=== PATIENT | female | born 1990 | race Two or more races ===

== ENCOUNTER 2019-07-25 16:46 | Emergency (ER) | payer SELFPAY ==
[~2019-07-25] VITALS: Ht 167.6 cm; Wt 131.5 kg
[~2019-07-25 16:46] MED LIST: CLIN150C14 PO; METR500T PO; PHEN37.5 PO
[2019-07-25] MEDS ORDERED: ONDANSETRON PF 4 MG/2 ML VIAL. ONE (17:21)
[2019-07-25] MEDS ORDERED: LIDO:MAALOX 1:1 20 ML SINGLE DOSE. ONE (17:21)
[2019-07-25 17:25] LABS: BASO # 0.1 x10^3/uL (0.0-0.2); BASO % 1 % (0-3); EOS # 0.1 x10^3/uL (0.0-0.7); EOS % 1 % (0-3); HEMATOCRIT 43.8 % (36.0-47.0); LYMPH # 1.3 x10^3/uL (1.0-4.8); LYMPH % 10 % (24-48); MEAN CORPUSCULAR HEMOGLOBIN 30 pg (25-35); MEAN CORPUSCULAR HGB CONC 34 g/dL (31-37); MEAN CORPUSCULAR VOLUME 86 fL (79-100); MONO # 0.5 x10^3/uL (0.0-1.1); MONO % 4 % (0-9); NEUT # 10.6 x10^3/uL (1.8-7.7); NEUT % 85 % (31-73); PLATELET COUNT 317 x10^3/uL (140-400); RED BLOOD COUNT 5.08 x10^6/uL (3.50-5.40); RED CELL DISTRIBUTION WIDTH 12.9 % (11.5-14.5); WHITE BLOOD COUNT 12.5 x10^3/uL (4.0-11.0)
[2019-07-25] MEDS ORDERED: IV NORMAL SALINE 1000ML BAG 1,000 ML IV ONE (17:30)
[2019-07-25] MEDS ORDERED: LIDO:MAALOX 1:1 20 ML SINGLE DOSE. SWSW ONE (17:30)
[2019-07-25] MEDS ORDERED: ONDANSETRON PF 4 MG/2 ML VIAL. IV ONE (17:30)
[2019-07-25 17:33] LABS: CALCIUM 8.8 mg/dL (8.5-10.1); CREATININE 0.7 mg/dL (0.6-1.0); GFR 98.9; POTASSIUM 3.9 mmol/L (3.5-5.1)
[2019-07-25 17:38] LABS: ALBUMIN 3.8 g/dL (3.4-5.0); ALBUMIN/GLOBULIN RATIO 0.9 (1.0-1.7); MAGNESIUM 1.8 mg/dL (1.8-2.4); TOTAL BILIRUBIN 0.5 mg/dL (0.2-1.0)
[2019-07-25] MEDS ORDERED: FAMOTIDINE 20 MG/2 ML VIAL IVP ONE (17:45)
[2019-07-25 17:49] LABS: PREG TEST PT QUAL NEGATIVE (NEG)
--- NOTE | 2019-07-25 17:49 | PHYS DOC ---
Past Medical History Past Medical History: Asthma, GERD, Other Additional Past Medical Histor: BACK PAIN Past Surgical History: Appendectomy, Cholecystectomy, Additional Past Surgical Histo: PARTIAL REMOVAL OF RIGHT TUBE Alcohol Use: Occasionally Drug Use: None Adult General Chief Complaint Chief Complaint: ABDOMINAL PAIN [facility] HPI Patient is a 29 year old female, accompanied by her , who presents to the emergency department with complaints of nausea, vomiting, diarrhea, body aches, and epigastric pain that began today. Patient states she has had at least 10 episodes of nausea and vomiting at least 10 episodes of watery diarrhea today. She denies any blood in her emesis or stools. Patient denies any fever, chills, cough, shortness of breath, wheezing, ear pain, or headache. She states that her throat hurts after vomiting so many times. She denies any dysuria, hematuria, increased urinary frequency, or low back pain. The patient currently rates her pain at 10/10 on the pain scale, she denies any alleviating factors. All other ROS is neg unless otherwise noted in HPI. Review of Systems Review of Systems See Above Current Medications Current Medications Current Medications Medications (Trade) Dose Ordered Sig/Karely Start Time Stop Time Status Last Admin Dose Admin Famotidine (Pepcid Vial) 20 mg 1X ONCE 07/25/19 17:45 07/25/19 17:46 DC 07/25/19 18:16 20 MG Multi-Ingredient Mouthwash/Gargle (Gi Cocktail) 20 ml 1X ONCE 07/25/19 17:30 07/25/19 17:31 DC 07/25/19 17:28 20 ML Ondansetron HCl (Zofran) 4 mg 1X ONCE 07/25/19 17:30 07/25/19 17:31 DC 07/25/19 17:27 4 MG Sodium Chloride 1,000 ml @ 1,000 mls/hr 1X ONCE 07/25/19 17:30 07/25/19 18:29 DC 07/25/19 17:26 1,000 MLS/HR Allergies Allergies Allergies Coded Allergies Type Severity Reaction Last Updated Verified Penicillins Allergy Intermediate hives 07/25/19 Yes Physical Exam Physical Exam See Above Constitutional: Well developed, well nourished, moderate distress, non-toxic appearance, obese. [] HENT: Normocephalic, atraumatic, bilateral external ears normal, oropharynx moist, no oral exudates, nose normal. [] Eyes: PERRLA, EOMI, conjunctiva normal, no discharge. [] Neck: Normal range of motion, no stridor. [] Cardiovascular:Heart rate regular rhythm, no murmur [] Lungs & Thorax: Bilateral breath sounds clear to auscultation [] Abdomen: Bowel sounds normal, soft, epigastric TTP, no guarding, no rebound tenderness, no masses, no pulsatile masses. [] Skin: Warm, dry, no erythema, no rash. [] Back: No tenderness, no CVA tenderness. [] Extremities: No cyanosis, ROM intact Neurologic: Alert and oriented X 3, no focal deficits noted. [] Psychologic: Affect anxious, judgement normal, mood normal. [] Current Patient Data Vital Signs Vital Signs Date Time Temp Pulse Resp B/P (MAP) Pulse Ox O2 Delivery O2 Flow Rate FiO2 07/25/19 17:00 99.6 100 16 139/73 (95) 95 Room Air 99.6 Lab Values Laboratory Tests Test 07/25/19 17:19 07/25/19 17:47 07/25/19 17:53 White Blood Count 12.5 x10^3/uL (4.0-11.0) H Red Blood Count 5.08 x10^6/uL (3.50-5.40) Hemoglobin 15.0 g/dL (12.0-15.5) Hematocrit 43.8 % (36.0-47.0) Mean Corpuscular Volume 86 fL (79-100) Mean Corpuscular Hemoglobin 30 pg (25-35) Mean Corpuscular Hemoglobin Concent 34 g/dL (31-37) Red Cell Distribution Width 12.9 % (11.5-14.5) Platelet Count 317 x10^3/uL (140-400) Neutrophils (%) (Auto) 85 % (31-73) H Lymphocytes (%) (Auto) 10 % (24-48) L Monocytes (%) (Auto) 4 % (0-9) Eosinophils (%) (Auto) 1 % (0-3) Basophils (%) (Auto) 1 % (0-3) Neutrophils # (Auto) 10.6 x10^3/uL (1.8-7.7) H Lymphocytes # (Auto) 1.3 x10^3/uL (1.0-4.8) Monocytes # (Auto) 0.5 x10^3/uL (0.0-1.1) Eosinophils # (Auto) 0.1 x10^3/uL (0.0-0.7) Basophils # (Auto) 0.1 x10^3/uL (0.0-0.2) Sodium Level 139 mmol/L (136-145) Potassium Level 3.9 mmol/L (3.5-5.1) Chloride Level 102 mmol/L (98-107) Carbon Dioxide Level 27 mmol/L (21-32) Anion Gap 10 (6-14) Blood Urea Nitrogen 14 mg/dL (7-20) Creatinine 0.7 mg/dL (0.6-1.0) Estimated GFR (Cockcroft-Gault) 98.9 BUN/Creatinine Ratio 20 (6-20) Glucose Level 101 mg/dL (70-99) H Calcium Level 8.8 mg/dL (8.5-10.1) Magnesium Level 1.8 mg/dL (1.8-2.4) Total Bilirubin 0.5 mg/dL (0.2-1.0) Aspartate Amino Transferase (AST) 53 U/L (15-37) H Alanine Aminotransferase (ALT) 117 U/L (14-59) H Alkaline Phosphatase 117 U/L (46-116) H Total Protein 8.0 g/dL (6.4-8.2) Albumin 3.8 g/dL (3.4-5.0) Albumin/Globulin Ratio 0.9 (1.0-1.7) L Lipase 78 U/L (73-393) Serum Test, Qualitative Negative (NEG) Influenza Type A Antigen Negative (NEGATIVE) Influenza Type B Antigen Negative (NEGATIVE) Urine Collection Type Unknown Urine Color Yellow Urine Clarity Clear Urine pH 6.0 Urine Specific [place] 1.025 Urine Protein Negative mg/dL (NEG-TRACE) Urine Glucose (UA) Negative mg/dL (NEG) Urine Ketones (Stick) Negative mg/dL (NEG) Urine Blood Negative (NEG) Urine Nitrite Negative (NEG) Urine Bilirubin Negative (NEG) Urine Urobilinogen Dipstick 0.2 mg/dL (0.2 mg/dL) Urine Leukocyte Esterase Negative (NEG) Urine RBC 1-2 /HPF (0-2) Urine WBC 5-10 /HPF (0-4) Urine Squamous Epithelial Cells Mod /LPF Urine Bacteria Moderate /HPF (0-FEW) Urine Mucus Marked /LPF Laboratory Tests 07/25/19 17:19 Laboratory Tests 07/25/19 17:19 EKG EKG [] Radiology/Procedures Radiology/Procedures [] Course & Med Decision Making Course & Med Decision Making Pertinent Labs and Imaging studies reviewed. (See chart for details) She is a 29-year-old female who presented to the emergency department with complaints of nausea, vomiting and diarrhea that started today. Her CBC revealed white blood cell count of 12.5, was otherwise unremarkable; her CMP revealed a glucose of 101, AST of 53, ALT 117, and alkaline phosphatase of 117 was otherwise unremarkable serum test was negative; UA is likely contaminated with 5-10 white blood cells but moderate squamous cells. Patient denied any dysuria, hematuria or increased urinary frequency Patient's vital signs are stable, she was given a liter of normal saline, 4 mg of Zofran 20 mg of Pepcid and a GI cocktail in the emergency department she reported feeling better after these medications. A prescription was written for Zofran, a clear liquid diet for 24 hours was recommended followed by a bland diet and then advance as tolerated. Patient was instructed to follow-up with her primary care doctor if symptoms persist, return to the ER symptoms worsen. Patient verbalized an understanding of home care, medications, follow-up, and return to ED instructions and was in agreement with the plan of care. [] Dragon Disclaimer Dragon Disclaimer This electronic medical record was generated, in whole or in part, using a voice recognition dictation system. Departure Departure Impression: Primary Impression: Nausea, vomiting, and diarrhea Additional Impression: Epigastric abdominal pain Disposition: 01 HOME, SELF-CARE Condition: STABLE Referrals: NO PCP (PCP) Patient Instructions: Diarrhea, [id number], Diet for Diarrhea, Adult, Nausea and Vomiting, [id number] Additional Instructions: Fill prescriptions and use them as directed. Recommend clear fluids for the next 24 hours. Then you may advance to bland foods such as bananas, rice, applesauce, and dry toast. Follow-up with your primary care doctor in the next 1-2 days. Return to the emergency room if your symptoms worsen. Scripts Ondansetron Hcl (ZOFRAN) 4 Mg Tablet 1 TAB PO Q6HRS PRN for NAUSEA/VOMITING for 4 Days, #10 TAB 0 Refills Prov: GLENYS ROMAN APRN 07/25/19 Problem Qualifiers GLENYS ROMAN APRN Jul 25, 2019 17:49
[2019-07-25 18:08] LABS: BILIRUBIN,URINE NEGATIVE (NEG); CLARITY,URINE CLEAR; COLOR,URINE YELLOW; NITRITE,URINE NEGATIVE (NEG); PROTEIN,URINE NEGATIVE (NEG-TRACE); UROBILINOGEN,URINE 0.2 mg/dL (0.2 mg/dL)
[2019-07-25 18:11] LABS: INFLUENZA A PATIENT NEGATIVE (NEGATIVE); INFLUENZA B PATIENT NEGATIVE (NEGATIVE)
[2019-07-25 18:20] LABS: BACTERIA,URINE MODERATE /HPF (0-FEW)
[2019-07-25 18:21] LABS: SQUAMOUS EPITHELIAL CELL,UR MOD /LPF
[2019-07-25 18:32] VITALS: BP 115/64
[2019-07-25] MEDS ORDERED: ONDA4TAB7 PO (18:38)
== END 2019-07-25 18:52 | disposition home or self-care (01) ==
LOC: ER 16:46
DX: R11.2 Nausea with vomiting, unspecified (principal); R19.7 Diarrhea, unspecified; R10.13 Epigastric pain; J45.909 Unspecified asthma, uncomplicated; K21.9 Gastro-esophageal reflux disease without esophagitis; Z90.49 Acquired absence of other specified parts of digestive tract; Z98.890 Other specified postprocedural states; Z90.89 Acquired absence of other organs; Z88.0 Allergy status to penicillin
CPT/HCPCS: 36415; 80053; 81001; 83690; 83735; 84703; 85025; 87086; 87804; 96361; 96374; 96375; 99284; J2405; J3490; J7030

== ENCOUNTER → 2021-03-03 | Outpatient (CLI) | payer OTHER ==
[~2021-03-03] MED LIST changes: -CLIN150C14 PO; +CLIN150C15 PO; +LIDOCAINE 1% Multi-Dose 20 ML VIAL. INJ ONE; +ONDA4TAB7 PO
--- NOTE | 2021-03-03 13:57 | RAD ---
EXAM: Sonographic guided left breast biopsy; left breast biopsy clip placement; left breast postbiops y mammogram. HISTORY: 30-year-old female presents for sonographic guided biopsy of a nodule within the left breast demonstrated on a mammogram and sonogram performed at an outside facility. TECHNIQUE: The risks of the procedure were discussed with the patient and written and verbal consent was obtained. A timeout was performed. Sonographic imaging of the left breast was performed and the n odule concern at the 3:00 position was identified. The skin in this location was sterilely prepped, d raped and infiltrated with 1 percent lidocaine. Multiple core samples were obtained through the lesio n of concern with sonographic guidance. A biopsy clip was advanced to the biopsy bed and deployed. Ma nual compression was maintained until hemostasis was achieved. A sterile measures placed. A post biop sy mammogram demonstrates the biopsy clip immediately adjacent to the nodule of concern. The patient tolerated the procedure without complication and was discharged in stable condition. IMPRESSION: Sonographic and biopsy of a 1.6 cm nodule within the 3:00 position of the left breast and biopsy clip placement. An addendum to this report will be submitted when pathology results are avail able. Electronically signed by: Ankita García MD (03/03/2021 1:55 PM) [id number]
--- NOTE | 2021-03-04 18:23 | PATHOLOGY ---
[facility] Accession Number: [id number] . 01 Material submitted: . breast - LEFT BREAST TISSUE 3:00 5CM FN. Modifiers: left, 3:00, 5CM FN . 01 Clinical history: . LEFT BREAST MASS 5CM FN LEFT BREAST BIOPSY ABNORMAL HERRERA . 02 Diagnosis: Breast tissue, left breast mass 3:00 5 cm from nipple needle biopsies: - Fibroadenoma, showing focal sclerosis, mild ductal epithelial hyperplasia, and apocrine metaplasia. (JPM:clifford; 03/04/2021) MBR 03/04/2021 1327 Local . 02 Comment: There is no atypia or evidence of malignancy. (JPM:clifford; 03/04/2021) . 02 Electronically signed: . Olman Bernard MD, Pathologist NPI- [id number] . 01 Gross description: . The specimen is received in formalin, labeled "Paul, Anuradha L and left breast" and is additionally labeled per the requisition "left breast tissue 300 5 cm FN". It consists of multiple vasquez-yellow fibrofatty core tissue fragments ranging from 0.4-1.5 cm in length and averaging 0.2 cm in diameter. The specimen is entirely submitted between sponges in A1. Per the requisition; ischemic time: 1320; time in formalin: 1320. Total time in formalin: 9 hours 20 minutes. (MRF; 03/03/2021) MFE/MFE 03/04/2021 1326 Local . 02 Pathologist provided ICD-10: D24.2, N62, N60.82 . 02 CPT . 500212 Specimen Comment: A courtesy copy of this report has been sent to [phone], [phone] Specimen Comment: [id number] Specimen Comment: Report sent to / DR CAIN Performed at: [address] [facility], [place] [id number] MD Reg Domínguez MD Phone: [phone] [facility]formed at: [facility] [address], [place] [id number] MD Olman Bernard MD Phone: [phone]
== END | disposition home or self-care (01) ==
LOC: US 12:36
PROVIDERS: ATTEND Surgery
DX: N63.21 Unspecified lump in the left breast, upper outer quadrant (principal); R92.8 Other abnormal and inconclusive findings on diagnostic imaging of breast; D24.2 Benign neoplasm of left breast; N60.82 Other benign mammary dysplasias of left breast; Z87.891 Personal history of nicotine dependence; Z88.0 Allergy status to penicillin; Z72.89 Other problems related to lifestyle
CPT/HCPCS: 19083; 77065; A4648

== ENCOUNTER 2021-10-20 16:09 | Emergency (ER) | payer MEDICAID, OTHER ==
[~2021-10-20] VITALS: Ht 167.6 cm; Wt 118.2 kg
[~2021-10-20 16:09] MED LIST changes: -CLIN150C15 PO; +CLIN150C16 PO; -LIDOCAINE 1% Multi-Dose 20 ML VIAL. INJ ONE; -PHEN37.5 PO; +PHEN37.59 PO
[2021-10-20 17:02] LABS: BILIRUBIN,URINE NEGATIVE (NEG); CLARITY,URINE CLEAR; COLOR,URINE YELLOW; NITRITE,URINE NEGATIVE (NEG); PROTEIN,URINE NEGATIVE (NEG-TRACE); UROBILINOGEN,URINE 0.2 mg/dL (0.2 mg/dL)
[2021-10-20 17:03] LABS: BACTERIA,URINE FEW /HPF (0-FEW); RBC,URINE 0 /HPF (0-2); WBC,URINE OCC /HPF (0-4)
[2021-10-20 17:12] LABS: BASO # 0.1 x10^3/uL (0.0-0.2); BASO % 1 % (0-3); EOS # 0.1 x10^3/uL (0.0-0.7); EOS % 2 % (0-3); HEMATOCRIT 36.6 % (36.0-47.0); HEMOGLOBIN 12.1 g/dL (12.0-15.5); LYMPH # 3.7 x10^3/uL (1.0-4.8); LYMPH % 38 % (24-48); MEAN CORPUSCULAR HEMOGLOBIN 28 pg (25-35); MEAN CORPUSCULAR HGB CONC 33 g/dL (31-37); MEAN CORPUSCULAR VOLUME 85 fL (79-100); MONO # 0.5 x10^3/uL (0.0-1.1); MONO % 5 % (0-9); NEUT # 5.2 x10^3/uL (1.8-7.7); NEUT % 55 % (31-73); PLATELET COUNT 304 x10^3/uL (140-400); RED BLOOD COUNT 4.29 x10^6/uL (3.50-5.40); RED CELL DISTRIBUTION WIDTH 13.3 % (11.5-14.5); WHITE BLOOD COUNT 9.6 x10^3/uL (4.0-11.0)
[2021-10-20 17:19] LABS: CALCIUM 8.2 mg/dL (8.5-10.1); CREATININE 0.7 mg/dL (0.6-1.0); GFR 97.6; POTASSIUM 3.6 mmol/L (3.5-5.1)
[2021-10-20 17:26] LABS: ALBUMIN 3.3 g/dL (3.4-5.0); TOTAL BILIRUBIN 0.2 mg/dL (0.2-1.0); TOTAL PROTEIN 6.7 g/dL (6.4-8.2)
--- NOTE | 2021-10-20 17:47 | RAD ---
US OB <14 WKS +TV Clinical Indication: Left lower pelvic pain, . Patient reports positive test a wee k ago. Comparison: None. TECHNIQUE: Real-time ultrasound imaging of the pelvis using transabdominal and transvaginal window is performed. Findings: Uterus measures 11 x 8 x 7 cm. The uterus is anteverted. The endometrial stripe is thickened measurin g 2.3 cm. An intrauterine gestational sac is not identified. There are tiny nabothian cysts, largest measures 5 mm. Normal blood flow is seen in the right ovary. There is a right ovary functional cyst measuring up to 2.4 cm. Right ovary measures 3.2 x 2.8 x 2.9 cm. The left ovary is obscured due to overlying bowel ga s. No pelvic free fluid is identified. No obvious adnexal mass is seen. IMPRESSION: 1. Intrauterine gestational sac is not seen. No secondary signs of an ectopic are identifi ed. Suggest correlation with quantitative beta hCG. 2. The left ovary is not visualized. Electronically signed by: Elías Hernandez MD (10/20/2021 5:45 PM) [facility]
[2021-10-20 17:52] VITALS: BP 107/53
--- NOTE | 2021-10-20 18:28 | PHYS DOC ---
Past Medical History Past Medical History: Asthma, GERD, Other Additional Past Medical Histor: BACK PAIN Past Surgical History: Appendectomy, Cholecystectomy, Additional Past Surgical Histo: SKULL FRACTURE Smoking Status: Never Smoker Alcohol Use: None Drug Use: None General Adult EDM: Chief Complaint: ABDOMINAL PAIN HPI: HPI: Patient is a 31-year-old female G5, P4 presents to the emergency department complaining of left lower pelvic pain, patient reports she had her right uterine tube removed related to a cyst during her last . Patient is worried she may have an ectopic as she had a positive test on 10/15 o f this year. Patient reports her last menstrual cycle was July 30 however has a history of PCOS and has consistent irregular menstrual cycles. Patient reports slow onset of pain starting this past Tuesday rating a 3 or 4 out of 10 and currently increasing to a 6 out of 10 today. Patient does report being very gassy with bowel gas, reports having problems with constipation over the past week, denies seeing blood in her stool, has not had a bowel movement in 2 days, patient states she has gone longer without bowel movements, patient uses MiraLAX at home for constipation. Patient denies nausea, vomiting, abdominal discomfort, chest pain or chest congestion, denies shortness of breath. Patient denies increased urinary pressure, urinary frequency, urinary burning, hematuria or other dysuria. Patient denies vaginal discharge, denies STI concerns. Patient denies vaginal bleeding. Patient reports she has had PID in the past and this does not feel the same. Patient reports allergy to penicillin, Augmentin, and gabapentin, patient reports she takes a vitamin and Tylenol for pain at home. Patient reports her last Tylenol dose was 2 tablets at 1 PM with minimal relief of her left lower pelvic pain. Patient denies history of blood clots, DVTs, or pulmonary emboli. Patient denies other physical complaints or physical concerns. Review of Systems: Review of Systems: 14 body systems of review of systems have been reviewed. See HPI for pertinent positives and negative responses, otherwise all other systems are negative, nonpertinent or noncontributory. Constitutional: Negative except as outlined in HPI above. Skin: Negative except as outlined in HPI above. Eyes: Negative except as outlined in HPI above. HENT: Negative except as outlined in HPI above. Respiratory: Negative except as outlined in HPI above. Cardiovascular: Negative except as outlined in HPI above. GI: Negative except as outlined in HPI above. : Negative except as outlined in HPI above. Musculoskeletal: Negative except as outlined in HPI above. Integument: Negative except as outlined in HPI above. Neurologic: Negative except as outlined in HPI above. Endocrine: Negative except as outlined in HPI above. Lymphatic: Negative except as outlined in HPI above. Psychiatric: Negative except as outlined in HPI above. Heart Score: C/O Chest Pain: No Risk Factors: Risk Factors: DM, Current or recent (<one month) smoker, HTN, HLP, family history of CAD, obesity. Risk Scores: Score 0 - 3: 2.5% MACE over next 6 weeks - Discharge Home Score 4 - 6: 20.3% MACE over next 6 weeks - Admit for Clinical Observation Score 7 - 10: 72.7% MACE over next 6 weeks - Early Invasive Strategies Allergies: Allergies: Allergies Coded Allergies Type Severity Reaction Last Updated Verified Penicillins Allergy Intermediate hives 07/25/19 Yes amoxicillin Allergy Unknown 10/20/21 Yes clavulanic acid Allergy Unknown 10/20/21 Yes gabapentin Allergy Unknown 10/20/21 Yes Physical Exam: PE: Constitutional: Well developed, well nourished, no acute distress, non-toxic appearance. 31-year-old female in no apparent distress. HENT: Normocephalic, atraumatic. Eyes: Conjunctiva normal, no discharge. Neck: Normal range of motion. Cardiovascular: Distal cap refill less than 2 seconds, no cyanosis appreciated. Lungs & Thorax: Patient is in no respiratory distress, no adventitious lung sounds appreciated. Abdomen: Bowel sounds normal, soft, no tenderness, no masses, no pulsatile masses. No bruising or skin discoloration of the abdomen. There is pain to palpation left lower pelvic area. There is no rebound tenderness, no McBurney's point tenderness, no upper abdominal pain, no flank pain appreciated. Skin: Warm, dry, no erythema, no rash. Back: No tenderness, no CVA tenderness. Extremities: No tenderness, no cyanosis, no clubbing, ROM intact, no edema. Neurologic: Alert and oriented X 3, normal motor function, normal sensory function, no focal deficits noted. Psychologic: Affect normal, judgement normal, mood normal. : Patient deferred pelvic examination. Current Patient Data: Labs: Laboratory Tests Test 10/20/21 16:20 10/20/21 16:24 10/20/21 17:00 Urine Collection Type Unknown Urine Color Yellow Urine Clarity Clear Urine pH 6.0 (<5.0-8.0) Urine Specific [place] 1.025 (1.000-1.030) Urine Protein Negative mg/dL (NEG-TRACE) Urine Glucose (UA) Negative mg/dL (NEG) Urine Ketones (Stick) Negative mg/dL (NEG) Urine Blood Negative (NEG) Urine Nitrite Negative (NEG) Urine Bilirubin Negative (NEG) Urine Urobilinogen Dipstick 0.2 mg/dL (0.2 mg/dL) Urine Leukocyte Esterase Negative (NEG) Urine RBC 0 /HPF (0-2) Urine WBC Occ /HPF (0-4) Urine Squamous Epithelial Cells Mod /LPF Urine Bacteria Few /HPF (0-FEW) Urine Mucus Mod /LPF POC Urine HCG, Qualitative Hcg positive (Negative) White Blood Count 9.6 x10^3/uL (4.0-11.0) Red Blood Count 4.29 x10^6/uL (3.50-5.40) Hemoglobin 12.1 g/dL (12.0-15.5) Hematocrit 36.6 % (36.0-47.0) Mean Corpuscular Volume 85 fL (79-100) Mean Corpuscular Hemoglobin 28 pg (25-35) Mean Corpuscular Hemoglobin Concent 33 g/dL (31-37) Red Cell Distribution Width 13.3 % (11.5-14.5) Platelet Count 304 x10^3/uL (140-400) Neutrophils (%) (Auto) 55 % (31-73) Lymphocytes (%) (Auto) 38 % (24-48) Monocytes (%) (Auto) 5 % (0-9) Eosinophils (%) (Auto) 2 % (0-3) Basophils (%) (Auto) 1 % (0-3) Neutrophils # (Auto) 5.2 x10^3/uL (1.8-7.7) Lymphocytes # (Auto) 3.7 x10^3/uL (1.0-4.8) Monocytes # (Auto) 0.5 x10^3/uL (0.0-1.1) Eosinophils # (Auto) 0.1 x10^3/uL (0.0-0.7) Basophils # (Auto) 0.1 x10^3/uL (0.0-0.2) Maternal Serum HCG Beta Subunit 352 mIU/mL (0-5) H Sodium Level 141 mmol/L (136-145) Potassium Level 3.6 mmol/L (3.5-5.1) Chloride Level 106 mmol/L (98-107) Carbon Dioxide Level 26 mmol/L (21-32) Anion Gap 9 (6-14) Blood Urea Nitrogen 7 mg/dL (7-20) Creatinine 0.7 mg/dL (0.6-1.0) Estimated GFR (Cockcroft-Gault) 97.6 BUN/Creatinine Ratio 10 (6-20) Glucose Level 103 mg/dL (70-99) H Calcium Level 8.2 mg/dL (8.5-10.1) L Total Bilirubin 0.2 mg/dL (0.2-1.0) Aspartate Amino Transferase (AST) 15 U/L (15-37) Alanine Aminotransferase (ALT) 23 U/L (14-59) Alkaline Phosphatase 55 U/L (46-116) Total Protein 6.7 g/dL (6.4-8.2) Albumin 3.3 g/dL (3.4-5.0) L Albumin/Globulin Ratio 1.0 (1.0-1.7) Laboratory Tests 10/20/21 17:00 Laboratory Tests 10/20/21 17:00 Vital Signs: Vital Signs Date Time Temp Pulse Resp B/P (MAP) Pulse Ox O2 Delivery O2 Flow Rate FiO2 10/20/21 16:21 98.7 89 18 140/65 (90) 100 Room Air 98.7 EKG: EKG: [] Radiology/Procedures: Radiology/Procedures: REASON: Left lower pelvic pain, PROCEDURE: OB <14 WKS W/TV US OB <14 WKS +TV Clinical Indication: Left lower pelvic pain, . Patient reports positive test a week ago. Comparison: None. TECHNIQUE: Real-time ultrasound imaging of the pelvis using transabdominal and transvaginal window is performed. Findings: Uterus measures 11 x 8 x 7 cm. The uterus is anteverted. The endometrial stripe is thickened measuring 2.3 cm. An intrauterine gestational sac is not identified. There are tiny nabothian cysts, largest measures 5 mm. Normal blood flow is seen in the right ovary. There is a right ovary functional cyst measuring up to 2.4 cm. Right ovary measures 3.2 x 2.8 x 2.9 cm. The left ovary is obscured due to overlying bowel gas. No pelvic free fluid is identified. No obvious adnexal mass is seen. IMPRESSION: 1. Intrauterine gestational sac is not seen. No secondary signs of an ectopic are identified. Suggest correlation with quantitative beta hCG. 2. The left ovary is not visualized. Electronically signed by: Elías Hernandez MD (10/20/2021 5:45 PM) [facility] Course & Med Decision Making: Course & Med Decision Making Pertinent Labs and Imaging studies reviewed. (See chart for details) 31-year-old female, vital signs reviewed, presents emergency department concerning worries of having an ectopic on the left. Patient is , is unsure of gestation, states her last menstrual cycle was in July however has history of PCOS and very irregular cycles. Will order OB ultrasound less than 14 weeks, beta hCG quant, CBC, CMP, urinalysis assay, urine test. The patient is per urine test, the patient's urine is not infected, CBC and CMP within normal limits. Beta hCG quant is 352, when compared with OB ultrasound, this may be very early as patient had positive test only on September. Discussed with patient concerns for STI, recommended GC chlamydia testing, wet prep testing, patient refused this saying she has had STIs and bacterial vaginosis in the past, does not have vaginal discharge, does not wish to have a pelvic exam or these tests run. Discussed with patient abdominal discomfort may be from constipation, patient states she has not taken MiraLAX this week, recommended using her MiraLAX dosing, strict follow-up with BATCH PLANT SUPERVISOR in 3 days for repeat hCG quant, discussed strict return to ER precautions and concerns, patient gave verbal understanding of and is amenable to ED discharge planning. Discussed with the patient all findings and diagnostic testing as well as the need to follow-up with their primary care provider for further evaluation and treatment or return to the ED if any new or worsening symptoms. Strict return precautions were also discussed at length, the patient voiced understanding and agreement with the discharge planning. The patient was nontoxic in appearance, in no apparent distress, and hemodynamically stable at the time of disposition. Liss Disclaimer: Liss Disclaimer: This electronic medical record was generated, in whole or in part, using a voice recognition dictation system. Departure Departure Impression: Primary Impression: Pelvic pain during in first trimester, antepartum Disposition: HOME / SELF CARE / HOMELESS Condition: GOOD Referrals: DEXTER HARDIN APRN (PCP) ORLANDO SCOTT MD Patient Instructions: Abdominal Pain During , Pelvic Pain, Female Additional Instructions: You were seen today in the emergency department for left lower pelvic pain during . You were worried of an ectopic as you no longer have your right sided uterine tube. An ultrasound did not show any signs of ectopic , there was also no sign of gestational sac. With your history of abnormal periods and PCOS, this could be a very early . Please let your BATCH PLANT SUPERVISOR know of your beta hCG level today equaling 352. Please have this redrawn and 3 days to trend whether getting larger or smaller. As we investigated reasons for your abdominal discomfort, this could be from gas pains and constipation. Please use your MiraLAX at home to help with normal bowel movements. I have given Dr. Orlando Scott BATCH PLANT SUPERVISOR specialist information above, please call tomorrow for the earliest appointment. Please return to the emergency department for worsening symptoms, vaginal bleeding, vaginal d ischarge, or other concerns. Please refrain from sexual intercourse until otherwise directed by your BATCH PLANT SUPERVISOR specialist. Let your doctor know the following labs. Performed on 10/20/2021. WBC 9.6, HBG 12.1, HCT 36.6, all chemistries within normal limits, urine was not infected, there is no hematuria. Beta hCG equals 352. EMERGENCY DEPARTMENT GENERAL DISCHARGE INSTRUCTIONS Thank you for coming to [facility] Emergency Department (ED) today and trusting us with you care. We trust that you had a positive experience in our Emergency Department. If you wish to speak to the department management, you may call the Director at [phone]. YOUR FOLLOW UP INSTRUCTIONS ARE FOLLOWS: 1. Do you have a private Doctor? If you do not have a private doctor, please ask for a resource list of physicians or clinics that may be able to assist you with follow up care. 2. The Emergency Physicain has interpreted your x-rays. The X-Ray specialist will also review them. If there is a change in the findings, you will be notified in 48 hours when at all possible. 3. A lab test or culture has been done, your results will be reviewed and you will be notified if you need a change in treatment. ADDITIONAL INSTRUCTIONS AND INFORMATION: 1. Your care today has been supervised by a physician who is specially trained in emergency care. Many problems require more than one evaluation for a complete diagnosis and treatment. We recommend that you schedule your follow up appointment as recommended to ensure complete treatment of you illness or injury. If you are unable to obtain follow up care and continue to have a problem, or if your condition worsens, we recommend that you return to the ED. 2. We are not able to safely determine your condition over the phone nor are we able to give sound medical advice over the phone. For these safety reasons, if you call for medical advice we will ask you to come to the ED for further evaluation. 3. If you have any questions regarding these discharge instructions please call the ED at [phone]. SAFETY INFORMATION: In the interest of safety, wellness, and injury prevention; we encourage you to wear your sealbelt, if you smoke; quite smoking, and we encourage family to use a protective helmet for bicycling and other sporting events that present an increased risk for head injury. IF YOUR SYMPTOMS WORSEN OR NEW SYMPTOMS DEVELOP, OR YOU HAVE CONCERNS ABOUT YOUR CONDITION; OR IF YOUR CONDITION WORSENS WHILE YOU ARE WAITING FOR YOUR FOLLOW UP APPOINTMENT; EITHER CONTACT YOUR PRIMARY CARE DOCTOR, THE PHYSICIAN WHOSE NAME AND NUMBER YOU WERE GIVEN, OR RETURN TO THE ED IMMEDIATELY. ORLANDO GORDON APRN Oct 20, 2021 18:28
== END 2021-10-20 18:35 | disposition home or self-care (01) ==
LOC: ER 16:09
DX: R10.2 Pelvic and perineal pain (principal); O26.891 Other specified pregnancy related conditions, first trimester; O99.511 Diseases of the respiratory system complicating pregnancy, first trimester; J45.909 Unspecified asthma, uncomplicated; Z3A.00 Weeks of gestation of pregnancy not specified; K21.9 Gastro-esophageal reflux disease without esophagitis; Z90.89 Acquired absence of other organs; Z90.49 Acquired absence of other specified parts of digestive tract
CPT/HCPCS: 36415; 76801; 76817; 80053; 81001; 81025; 84702; 85025; 99284

== ENCOUNTER 2021-11-08 16:10 | Emergency (ER) | payer MEDICAID ==
[~2021-11-08] VITALS: Ht 167.6 cm; Wt 122.7 kg
[2021-11-08 16:59] LABS: BILIRUBIN,URINE NEGATIVE (NEG); CLARITY,URINE CLEAR; COLOR,URINE YELLOW; NITRITE,URINE NEGATIVE (NEG); PROTEIN,URINE NEGATIVE (NEG-TRACE); UROBILINOGEN,URINE 0.2 mg/dL (0.2 mg/dL)
--- NOTE | 2021-11-08 17:02 | PHYS DOC ---
Past Medical History Past Medical History: Asthma, GERD, Other Additional Past Medical Histor: BACK PAIN Past Surgical History: No Surgical History Additional Past Surgical Histo: SKULL FRACTURE Smoking Status: Never Smoker Alcohol Use: None Drug Use: None General Adult EDM: Chief Complaint: VAGINAL BLEEDING HPI: HPI: Patient is a 31 year old female 5 para 4 currently 8 weeks presenting to the ED today complaining of vaginal bleeding in , symptoms began approximately 2 weeks ago. Patient states she was seen in the ED on October 20, 2021 and her beta-hCG was 352 and he could not find an IUP. She states she followed up with the early clinic, her beta-hCG was 1900 and the still could not find an IUP. She presents to the ED today stating she still bleeding. She stated small amount of bleeding most of it when she wiped herself. She reports Abdominal cramping, denies any back pain, nausea, vomiting. Review of Systems: Review of Systems: Constitutional: Denies fever or chills. [] Eyes: Denies change in visual acuity. [] HENT: Denies nasal congestion or sore throat. [] Respiratory: Denies cough or shortness of breath. [] Cardiovascular: Denies chest pain or edema. [] GI: Reports vaginal bleeding in , abdominal cramping, denies nausea, vomiting, bloody stools or diarrhea. [] : Denies dysuria. [] Musculoskeletal: Denies back pain or joint pain. [] Integument: Denies rash. [] Neurologic: Denies headache, focal weakness or sensory changes. [] Psychiatric: Denies depression or anxiety. [] Heart Score: C/O Chest Pain: N/A Risk Factors: Risk Factors: DM, Current or recent (<one month) smoker, HTN, HLP, family history of CAD, obesity. Risk Scores: Score 0 - 3: 2.5% MACE over next 6 weeks - Discharge Home Score 4 - 6: 20.3% MACE over next 6 weeks - Admit for Clinical Observation Score 7 - 10: 72.7% MACE over next 6 weeks - Early Invasive Strategies Allergies: Allergies: Allergies Coded Allergies Type Severity Reaction Last Updated Verified Penicillins Allergy Intermediate hives 11/08/21 Yes amoxicillin Allergy Unknown 11/08/21 Yes clavulanic acid Allergy Unknown 11/08/21 Yes gabapentin Allergy Unknown 11/08/21 Yes Physical Exam: PE: Constitutional: Well developed, well nourished, no acute distress, non-toxic appearance. [] HENT: Normocephalic, atraumatic, bilateral external ears normal, oropharynx moist, no oral exudates, nose normal. [] Eyes: PERRLA, EOMI, conjunctiva normal, no discharge. [] Neck: Normal range of motion, no tenderness, supple, no stridor. [] Cardiovascular:Heart rate regular rhythm, no murmur [] Lungs & Thorax: Bilateral breath sounds clear to auscultation [] Abdomen: Bowel sounds normal, soft, no tenderness, no masses, no pulsatile masses. [] Pelvic exam External pelvic appears normal, cervix is visualized, closed, no CMT, trace dorothea unt of brownish discharge/spotting in the vaginal vault, no adnexal tenderness Skin: Warm, dry, no erythema, no rash. [] Back: No tenderness, no CVA tenderness. [] Extremities: No tenderness, no cyanosis, no clubbing, ROM intact, no edema. [] Neurologic: Alert and oriented X 3, normal motor function, normal sensory function, no focal deficits noted. [] Psychologic: Affect normal, judgement normal, mood normal. [] Current Patient Data: Vital Signs: Vital Signs Date Time Temp Pulse Resp B/P (MAP) Pulse Ox O2 Delivery O2 Flow Rate FiO2 11/08/21 16:21 98.3 81 14 136/79 (98) 98 98.3 EKG: EKG: [] Radiology/Procedures: Radiology/Procedures: []PROCEDURE: OB <14 WKS W/TV Exam: Ultrasound OB less than 14 weeks Indication: Vaginal bleeding Technique: Real-time grayscale and color Doppler images of the pelvis were obtained by the department mapping pilot. Comparisons: 10/20/2021 FINDINGS: Uterus measures 10.0 x 8.2 x 7.7 cm. Within the endometrium there is a gestational sac with internal yolk sac and pole. [place]-rump length is measured at 1.1 cm corresponding to 17 weeks 1 day. heart rate is measured at 131 bpm. Right ovary measures 4.4 x 2.6 x 2.9 cm. There is a cyst within the right ovary measures 2.6 cm. Vascular flow identified in the right ovary. Left ovary is not visualized likely secondary overlying bowel gas. No free fluid identified in the pelvis. IMPRESSION: 1. Single live intrauterine gestation measuring 7 weeks 1 day by current ultrasound. Correlate with LMP. 2. Dedicated survey is recommended at 18-20 weeks gestation. Electronically signed by: Rodrigo Rojas MD (11/08/2021 7:21 PM) [facility] DICTATED and SIGNED BY: RODRIGO ROJAS MD DATE: 11/08/211917 Course & Med Decision Making: Course & Med Decision Making Pertinent Labs and Imaging studies reviewed. (See chart for details) This a 31-year-old female patient 5 para 4 presented to the ED today with vaginal bleeding in that began 2 weeks ago. Patient states she is currently 8 weeks . She states she was seen in the ED on October 20, 2021, had a beta-hCG of 352 and an OB ultrasound that was not able to identify an IUP. She followed up with early clinic and she was told her beta hCG was 1900 and was still unable to find an IUP CBC is completely normal, wet prep noted for altered abimael, negative clue cells. Beta-hCG 50,335 Blood group O+ OB ultrasound no dental single live intrauterine gestation measuring 7 weeks 1 day by current ultrasound. UA negative for infection. Patient was discharged to home. She follows up with the OBGYN. Instructed to maintain bedrest/pelvic rest. Instructed to contact the OB tomorrow and set up a follow-up appointment. Provided return precautions. Discharged in stable condition Dragon Disclaimer: Liss Disclaimer: This electronic medical record was generated, in whole or in part, using a voice recognition dictation system. Departure Departure Impression: Primary Impression: Threatened miscarriage Disposition: 01 HOME / SELF CARE / HOMELESS Condition: STABLE Referrals: DEXTER HARDIN APRN (PCP) follow up with your OBGYN in the course of this week. Call the office tomorrow for an appointment Patient Instructions: Threatened Miscarriage, [id number] Additional Instructions: You were evaluated in the emergency room, your ultrasound is positive for a single live intrauterine gestation measuring 7 weeks 1 day by current ultrasound. Your beta-hCG is 50,335, please maintain pelvic rest/bedrest. Do not do any strenuous activities, no sex, no heavy lifting until the bleeding has stopped and you have been seen by your COMMUNITY SERVICE PATROL OFFICER. Please contact your OB tomorrow morning and set up a follow-up appointment. Come back to the ED at any point symptoms worsen. JOHN AYALA APRN Nov 08, 2021 17:02
[2021-11-08 17:03] LABS: BACTERIA,URINE 0 /HPF (0-FEW); RBC,URINE 0 /HPF (0-2); WBC,URINE 0 /HPF (0-4)
[2021-11-08 17:10] LABS: BASO # 0.1 x10^3/uL (0.0-0.2); BASO % 1 % (0-3); EOS # 0.2 x10^3/uL (0.0-0.7); EOS % 2 % (0-3); HEMOGLOBIN 12.3 g/dL (12.0-15.5); LYMPH # 2.7 x10^3/uL (1.0-4.8); LYMPH % 31 % (24-48); MEAN CORPUSCULAR HEMOGLOBIN 28 pg (25-35); MEAN CORPUSCULAR HGB CONC 33 g/dL (31-37); MEAN CORPUSCULAR VOLUME 85 fL (79-100); MONO # 0.6 x10^3/uL (0.0-1.1); MONO % 7 % (0-9); NEUT # 5.1 x10^3/uL (1.8-7.7); NEUT % 59 % (31-73); PLATELET COUNT 279 x10^3/uL (140-400); RED BLOOD COUNT 4.36 x10^6/uL (3.50-5.40); RED CELL DISTRIBUTION WIDTH 13.4 % (11.5-14.5); WHITE BLOOD COUNT 8.6 x10^3/uL (4.0-11.0)
[2021-11-08 18:14] VITALS: BP 125/78
--- NOTE | 2021-11-08 19:23 | RAD ---
Exam: Ultrasound OB less than 14 weeks Indication: Vaginal bleeding Technique: Real-time grayscale and color Doppler images of the pelvis were obtained by the department clamp carrier operator. Comparisons: 10/20/2021 FINDINGS: Uterus measures 10.0 x 8.2 x 7.7 cm. Within the endometrium there is a gestational sac with internal yolk sac and pole. [place]-rump length is measured at 1.1 cm corresponding to 17 weeks 1 day. Fet al heart rate is measured at 131 bpm. Right ovary measures 4.4 x 2.6 x 2.9 cm. There is a cyst within the right ovary measures 2.6 cm. Vasc ular flow identified in the right ovary. Left ovary is not visualized likely secondary overlying bowel gas. No free fluid identified in the pelvis. IMPRESSION: 1. Single live intrauterine gestation measuring 7 weeks 1 day by current ultrasound. Correlate with LMP. 2. Dedicated survey is recommended at 18-20 weeks gestation. Electronically signed by: Rodrigo Skaggs MD (11/08/2021 7:21 PM) [facility]
[2021-11-10 17:12] LABS: GC PROBE Negative (Negative)
== END 2021-11-08 19:57 | disposition home or self-care (01) ==
LOC: ER 16:10
DX: O20.0 Threatened abortion (principal); K21.9 Gastro-esophageal reflux disease without esophagitis; J45.909 Unspecified asthma, uncomplicated; Z3A.08 8 weeks gestation of pregnancy; Z88.0 Allergy status to penicillin; Z88.1 Allergy status to other antibiotic agents; Z88.8 Allergy status to other drugs, medicaments and biological substances
CPT/HCPCS: 36415; 76801; 76817; 81001; 84702; 85025; 86850; 86900; 86901; 87491; 87591; 99284; Q0111